=== PATIENT | male | born 1995 | race Two or more races ===

== ENCOUNTER 2017-10-17 04:59 | Inpatient (IN) | payer MEDICAID, OTHER ==
[~2017-10-17] VITALS: Ht 177.8 cm; Wt 80.0 kg
[2017-10-17] MEDS ORDERED: LORazepam 2MG/ML-1ML VIAL IV PRN ×3 (05:45→17:00)
[2017-10-17 05:50] LABS: Basophils # (auto) 0 uL; Basophils % (auto) 0.1 % (0.0-2.0); Eosinophils # (auto) 0 uL; Eosinophils % (auto) 0.3 % (0.0-7.0); Hematocrit 41.3 % (41.0-53.0); Lymphocytes # (auto) 0.8 uL; Lymphocytes % (auto) 7.3 % (10.0-50.0); Mean Corpuscular Hemoglobin 31.7 pg (28.0-32.0); Mean Corpuscular Hgb Conc. 33.8 g/dL (32.0-36.0); Mean Corpuscular Volume 93.7 fL (80.0-100.0); Monocytes # (auto) 0.5 uL; Monocytes % (auto) 4.5 % (0.0-12.0); Neutrophils # (auto) 9.9 uL; Neutrophils % (auto) 87.8 % (37.0-80.0); Platelet Count (auto) 264 10^3/uL (140-450); White Blood Cell 11.3 10^3/uL (4.4-10.8)
[2017-10-17 06:00] LABS: Albumin 3.7 g/dL (3.4-5.0); BUN/Creatinine Ratio 10.7; Calcium 7.9 mg/dL (8.5-10.1); Potassium 4.3 mmol/L (3.5-5.1)
[2017-10-17 06:16] LABS: Bilirubin, Total 0.2 mg/dL (0.2-1.0); Total Protein 7.3 g/dL (6.4-8.2)
[2017-10-17] MEDS ORDERED: LEVETIRACETAM INJ 1,000 MG in D5W 5% 100 ML IV ONE (07:15)
[2017-10-17] MEDS ORDERED: NITROGLYCERIN 0.4 MG SL TAB SL PRN (09:45)
[2017-10-17] MEDS ORDERED: MORPHINE SULFATE 4 MG/ML SYR/VIAL IV PRN ×2 (09:45)
[2017-10-17] MEDS ORDERED: HYDROcodone-ACET 5/325MG TAB PO PRN (09:45)
[2017-10-17] MEDS ORDERED: ONDANSETRON HCL 4 MG/2 ML VIAL IV PRN (09:45)
[2017-10-17] MEDS ORDERED: cefTRIAXone 1GM/10ml IVPUSH 10 ML IV ONE (09:45)
[2017-10-17] MEDS ORDERED: ACETAMINOPHEN 325 MG TAB PO PRN (09:45)
[2017-10-17] MEDS ORDERED: DOCUSATE SOD 100 MG CAP PO PRN (09:45)
[2017-10-17] MEDS ORDERED: LEVETIRACETAM INJ 500 MG in D5W 5% 100 ML IV SCH (10:00)
[2017-10-17] MEDS: MULTIPLE VITAMIN TAB PO SCH (10:12)
[2017-10-17] MEDS: SODIUM CHLORIDE 0.9% 1,000 ML IV SCH ×2 (10:12→16:54)
[2017-10-17 10:53] LABS: Urine Bacteria NONE SEEN /hpf (None Seen); Urine Blood Negative /uL (Negative); Urine Specific Gravity 1.012 (1.001-1.035); Urine WBC 1 /hpf (0 - 3)
[2017-10-17 11:10] LABS: Alcohol, Urine < 3.0 mg/dL (0-5); Amphetamine Screen, Urine POSITIVE (NEGATIVE); Barbiturate Scree,Urine NEGATIVE (NEGATIVE); Benzodiazephine Screen, Urine NEGATIVE (NEGATIVE); Cannabinoid Screen, Urine POSITIVE (NEGATIVE); Cocaine Screen, Urine POSITIVE (NEGATIVE); Opiate Scree,Urine NEGATIVE (NEGATIVE); Phencyclidine Screen, Urine NEGATIVE (NEGATIVE)
[2017-10-17] MEDS: LEVETIRACETAM 500 MG TAB PO SCH (22:00)
[2017-10-18] MEDS: SODIUM CHLORIDE 0.9% 1,000 ML IV SCH ×3 (06:35→10:53)
[2017-10-18 07:02] LABS: Basophils # (auto) 0 uL; Basophils % (auto) 0.4 % (0.0-2.0); Eosinophils # (auto) 0.1 uL; Eosinophils % (auto) 1.2 % (0.0-7.0); Hematocrit 38.8 % (41.0-53.0); Hemoglobin 13.2 g/dL (13.5-17.5); Lymphocytes # (auto) 1.6 uL; Lymphocytes % (auto) 25.2 % (10.0-50.0); Mean Corpuscular Hemoglobin 31.8 pg (28.0-32.0); Mean Corpuscular Volume 93.5 fL (80.0-100.0); Monocytes # (auto) 0.5 uL; Monocytes % (auto) 7.4 % (0.0-12.0); Neutrophils # (auto) 4.2 uL; Neutrophils % (auto) 65.8 % (37.0-80.0); Nucleated Red Blood Cells % 0.1 %; Platelet Count (auto) 239 10^3/uL (140-450); Red Blood Cells 4.15 10^6/uL (4.5-5.90); Red Cell Distribution Width 14.1 % (11.8-14.3); White Blood Cell 6.4 10^3/uL (4.4-10.8)
[2017-10-18 07:16] LABS: Potassium 3.8 mmol/L (3.5-5.1)
[2017-10-18 07:24] LABS: Albumin 3.5 g/dL (3.4-5.0); BUN/Creatinine Ratio 6.4; Calcium 8.3 mg/dL (8.5-10.1)
[2017-10-18 07:32] LABS: Bilirubin, Total 0.9 mg/dL (0.2-1.0); Total Protein 6.8 g/dL (6.4-8.2)
[2017-10-18] MEDS: MULTIPLE VITAMIN TAB PO SCH (10:52)
[2017-10-18] MEDS: LEVETIRACETAM 500 MG TAB PO SCH ×2 (10:52→22:04)
[2017-10-18] MEDS: cefTRIAXone 1GM/10ml IVPUSH 10 ML IV SCH (10:53)
[2017-10-18 11:02] VITALS: BP 113/76
[2017-10-18 17:21] VITALS: BP 129/84
[2017-10-18 21:40] VITALS: BP 122/68
[2017-10-19 04:49] VITALS: BP 119/71
[2017-10-19 07:43] LABS: Potassium 4.1 mmol/L (3.5-5.1)
[2017-10-19 07:48] LABS: Albumin 3.6 g/dL (3.4-5.0); BUN/Creatinine Ratio 6.3; Bilirubin, Total 0.4 mg/dL (0.2-1.0); Calcium 8.4 mg/dL (8.5-10.1); Total Protein 7.2 g/dL (6.4-8.2)
[2017-10-19 09:00] VITALS: BP 107/63
[2017-10-19] MEDS: cefTRIAXone 1GM/10ml IVPUSH 10 ML IV SCH (09:00)
[2017-10-19] MEDS: LEVETIRACETAM 500 MG TAB PO SCH ×2 (10:00→21:41)
[2017-10-19] MEDS: MULTIPLE VITAMIN TAB PO SCH (10:00)
[2017-10-19] MEDS ORDERED: LEVETIRACETAM 500 MG TAB PO ONE (12:45)
[2017-10-19 13:00] VITALS: BP 113/55
[2017-10-19 17:00] VITALS: BP 106/66
[2017-10-19] MEDS: SODIUM CHLORIDE 0.9% 1,000 ML IV SCH (21:42)
[2017-10-19 22:00] VITALS: BP 114/52
[2017-10-20 05:00] VITALS: BP 110/58
[2017-10-20 09:00] VITALS: BP 111/64
[2017-10-20] MEDS: LEVETIRACETAM 500 MG TAB PO SCH (09:45)
[2017-10-20] MEDS: cefTRIAXone 1GM/10ml IVPUSH 10 ML IV SCH (09:45)
[2017-10-20] MEDS: MULTIPLE VITAMIN TAB PO SCH (09:45)
[2017-10-20 13:00] VITALS: BP 137/70
[2017-10-20 17:00] VITALS: BP 127/65
== END 2017-10-20 21:20 | disposition home or self-care (01) | DRG 53 ==
LOC: ER 04:59 → EDBD 04:59 → TELE 05:00 → TELE-EAST 21:08
PROVIDERS: ADMIT Internal Medicine; ATTEND Internal Medicine
PROC: 4A00X4Z Measurement of Central Nervous Electrical Activity, External Approach (ICD-10-PCS; principal; 2017-10-18)
PROC: 4A00X4Z Measurement of Central Nervous Electrical Activity, External Approach (ICD-10-PCS; 2017-10-20)
DX: G40.802 Other epilepsy, not intractable, without status epilepticus (principal); G93.41 Metabolic encephalopathy; E83.51 Hypocalcemia; F90.9 Attention-deficit hyperactivity disorder, unspecified type; Z79.899 Other long term (current) drug therapy; F15.10 Other stimulant abuse, uncomplicated; F14.10 Cocaine abuse, uncomplicated; F12.10 Cannabis abuse, uncomplicated
CPT/HCPCS: 36415; 70450; 70551; 71045; 80053; 80307; 81001; 85025; 87086; 95819; 96365; 96375; J7060

== ENCOUNTER 2018-09-14 16:18 | Emergency (ER) | payer MEDICAID ==
[~2018-09-14] VITALS: Ht 175.3 cm; Wt 73.0 kg
[2018-09-14 16:25] VITALS: BP 139/76
== END 2018-09-14 17:03 | disposition home or self-care (01) ==
LOC: ER 16:18
DX: J03.90 Acute tonsillitis, unspecified (principal)

== ENCOUNTER 2020-04-21 14:54 | Emergency (ER) | payer MEDICAID ==
[~2020-04-21] VITALS: Ht 172.7 cm; Wt 86.2 kg
[2020-04-21 16:56] VITALS: BP 139/87
[2020-04-21] MEDS ORDERED: cefTRIAXone SOD 1,000 MG VL IM ONE (17:15)
[2020-04-21] MEDS ORDERED: traMADol HCL 50 MG TAB PO ONE (17:15)
[2020-04-21] MEDS ORDERED: LIDOCAINE 1% HCL (LOCAL ANESTH.) INJ 20ML MDV IJ ONE (17:15)
[2020-04-21] MEDS ORDERED: TETANUS-DIPTH-ACEL PERTUSSIS 0.5ML SYR Tdap IM ONE (17:15)
[2020-04-21] MEDS ORDERED: NEOMYCIN-BACITRACIN-POLYM UNITDOSE PKG TOP OINT TOP ONE ×2 (17:48→18:00)
[2020-04-21] MEDS ORDERED: KETOROLAC TROMETH 60MG/2ML VIAL IM ONE (20:15)
== END 2020-04-21 22:34 | disposition home or self-care (01) ==
LOC: ER 14:54 → EDBD 14:54 → ER 22:34
DX: S71.111A Laceration without foreign body, right thigh, initial encounter (principal); S79.921A Unspecified injury of right thigh, initial encounter; W45.8XXA Other foreign body or object entering through skin, initial encounter; Y93.89 Activity, other specified; Y92.89 Other specified places as the place of occurrence of the external cause; Y99.8 Other external cause status
CPT/HCPCS: 12001; 73700; 90471; 90715; 96372; 99284; J0696; J1885